=== PATIENT | male | born 1945 | race Hispanic/Latino ===

== ENCOUNTER 2022-11-11 15:25 | Emergency (ER) | payer MEDICARE ==
[~2022-11-11] VITALS: Ht 160 cm; Wt 63.5 kg
[2022-11-11] MEDS ORDERED: ACYCLOVIR SODIUM INJ 1,000 MG in SODIUM CHLORIDE 0.9% 250ML 250 ML IV STA (15:50)
[2022-11-11 15:59] LABS: BASOPHILS % 0.4 % (0.0-1.0); EOSINOPHILS % 0.3 % (0.0-6.0); HEMOGLOBIN 16.4 g/dL (14.0-18.0); LYMPHOCYTES # (AUTO) 0.9 (1.0-3.2); LYMPHOCYTES % 9.8 % (18.0-39.1); MEAN CORPUSCULAR HEMOGLOBIN 30.3 pg (28-32); MEAN CORPUSCULAR HGB CONC 32.8 g/dL (31-35); MEAN CORPUSCULAR VOLUME 92.4 fL (81-99); MONOCYTES % 10.4 % (4.4-11.3); NEUTROPHILS # (AUTO) 7.2 (2.1-6.9); NEUTROPHILS % 78.9 % (38.7-80.0); PLATELET COUNT 162 x10e3/uL (140-360); RED BLOOD COUNT 5.41 x10e6/uL (4.3-5.7); RED CELL DISTRIBUTION WIDTH 11.7 % (11.7-14.4)
[2022-11-11] MEDS ORDERED: Morphine 4mg INJECTION 4 MG/ML INJ IV ONE (16:00)
[2022-11-11 16:18] LABS: ANION GAP 17.5 mmol/L (8-16); CREATININE, SERUM 1.18 mg/dL (0.72-1.25); POTASSIUM 3.5 mmol/L (3.5-5.1)
== END 2022-11-11 18:13 | disposition other institution (70) ==
LOC: ER 15:34
DX: B02.30 Zoster ocular disease, unspecified (principal); I10 Essential (primary) hypertension; R51.9 Headache, unspecified; Z20.822 Contact with and (suspected) exposure to COVID-19
CPT/HCPCS: 36415; 80048; 85025; 99284; J0133; J2270; J7050; U0002